=== PATIENT | female | born 1955 | race Caucasian/White ===

== ENCOUNTER 2016-09-03 11:18 | Emergency (ER) | payer BC ==
[2016-09-03 11:58] VITALS: BP 168/96
[2016-09-03] MEDS ORDERED: Lidocaine 1% with EPINEPHrine 1:100,000 20 ML MDV INJECT ONE (12:47)
[2016-09-03] MEDS ORDERED: Diphtheria,Pertussis(Acell),Tetanus Vaccine 0.5 ML SDV inactive IM ONE (12:47)
--- NOTE | 2016-09-03 13:31 | EDM.PDOC ---
ED HPI GENERAL MEDICAL PROBLEM - General Chief Complaint: Head Injury Stated Complaint: FELL, FACIAL INJURIES Time Seen by Provider: 09/03/16 12:39 Source of Information: Reports: Patient History Limitations: Reports: No Limitations - History of Present Illness INITIAL COMMENTS - FREE TEXT/NARRATIVE: Patient is a 61-year-old female who presents to the ED complaining of nasal tenderness/swelling, laceration to the upper lip/gumline, and abrasions to her face and bridge of her nose. Patient states while walking she tripped due to uneven concrete and fell face first hitting the concrete. There was no loss of consciousness. Patient denies any neck/ back/ head pain, numbness/tingling, nausea/vomiting, vision changes, shortness of breath, chest pain, upper extremity/lower extremity pain, or any additional complaints. Patient has no pain to her teeth and denies being loose. No pain with opening closing her jaw. Current medical history includes hypertension and osteoarthritis Current medications losartan and Celebrex Surgical history noncontributory. Denies smoking history, recreational drug use, or alcohol use. Face Pain Score (Numeric/FACES): 3 - Related Data Allergies Allergy/AdvReac Type Severity Reaction Status Date / Time No Known Allergies Allergy Verified 09/03/16 11:52 Home Meds: Home Meds Celecoxib [CeleBREX] 200 mg PO DAILY 09/03/16 [History] Cephalexin [Keflex] 500 mg PO QID #20 capsule 09/03/16 [Rx] Losartan [Cozaar] 25 mg PO DAILY 09/03/16 [History] Past Medical History Cardiovascular History: Reports: Hypertension Musculoskeletal History: Reports: Osteoarthritis Social & Family History - Tobacco Use Smoking Status *Q: Never Smoker - Recreational Drug Use Recreational Drug Use: No ED ROS GENERAL - Review of Systems Review Of Systems: ROS reveals no pertinent complaints other than HPI. ED EXAM, HEAD INJURY - Physical Exam Exam: See Below Exam Limited By: No Limitations General Appearance: Alert, WD/WN, No Apparent Distress Head: Facial Lacerations (Inner aspect of upper lip), Facial Swelling (Nose, upper lip), Facial Tenderness (Mild along the bridge of the nose and along the upper lip). No: Scalp Abrasions, Scalp Ecchymosis, Scalp Hematoma, Scalp Tenderness, Facial Ecchymosis, Sinus Tenderness Nexus Criteria: No: Posterior, Midline Cervical Tenderness, Evidence of Intoxication, Altered Level of Consciousness, Focal Neurological Deficit, Painful Distraction Injuries Ears: Normal External Exam, Hearing Grossly Normal Nose: Nasal Swelling, Nasal Tenderness. No: Nasal Deformity, Nasal Discharge, Nasal Ecchymosis, Septal Deformity, Septal Hematoma, Septal Performation, Active Bleeding Throat/Mouth: Normal Voice, No Airway Compromise, Other (Swelling noted to the upper lip with a deep laceration inner aspect. No pain with palpation of the teeth. No loosening of the teeth noted. Gumline avulsed with lifting the upper lip. No trismus.) Neck: Non-Tender, Full Range of Motion, Normal Alignment, Normal Inspection Respiratory: No Respiratory Distress, Lungs Clear, Normal Breath Sounds, No Accessory Muscle Use, Chest Non-Tender Cardiovascular: Normal Peripheral Pulses, Regular Rate, Rhythm GI/Abdominal Exam (Abbreviated): Normal Bowel Sounds, Soft, Non-Tender, No Organomegaly, No Distention Back Exam: Normal Inspection, Full Range of Motion. No: Paraspinal Tenderness, Vertebral Tenderness Extremities: Normal Range of Motion, Non-Tender, No Pedal Edema, Other ( Superficial abrasions to the knuckles of hands bilaterally.) Neurologic: No Motor/Sensory Deficits, Alert, Normal Mood/Affect, Oriented x 3 Skin: Normal Color, Warm/Dry ED LACERATION/WOUND & BINDU PROC - Laceration/Wound Repair Upper Other Lac/wound length in cm: 1.5 (inner upper lip) Appearance: Subcutaneous, Clean Distal NVT: Neuro & Vascular Intact Anesthetic Type: Local Local Anesthesia - Lidocaine (Xylocaine): 1% Plain, 1% With EPI Local Anesthetic Volume: 3cc Exploration/Debridement/Repair: Wound Explored, in a Bloodless Field, Explored to Base, No Foreign Material Found Suture Size: 4-0 # of Sutures: 1 Suture Type: Prolene, Running, Other (vicryl) Drain Placement: No Sterile Dressing Applied: None Tetanus Status Addressed: Yes Complications: No Upper Jaw Lac/wound length in cm: 3 (upper front gumline) Appearance: Superficial Distal NVT: Neuro & Vascular Intact Anesthetic Type: Local Local Anesthesia - Lidocaine (Xylocaine): 1% With EPI Local Anesthetic Volume: 1cc Exploration/Debridement/Repair: Wound Explored, in a Bloodless Field, Explored to Base, No Foreign Material Found, Multiple Flaps Aligned Closed with: Sutures Suture Size: 4-0 # of Sutures: 1 (vicryl) Suture Type: Interrupted, Simple Drain Placement: No Sterile Dressing Applied: None Tetanus Status Addressed: Yes Complications: No Course - Vital Signs Last Recorded V/S: Last Vital Signs Temp 98.0 F 09/03/16 11:53 Pulse 80 09/03/16 11:53 Resp 17 09/03/16 11:53 BP 168/96 H 09/03/16 11:53 Pulse Ox 100 09/03/16 11:53 - Orders/Labs/Meds Orders: Active Orders 24 hr Category Date Time Status Vaccines to be Administered [RC] PER UNIT ROUTINE Care 09/03/16 12:47 Active Meds: Medications Discontinued Medications Generic Name Dose Route Start Last Admin Trade Name Freq PRN Reason Stop Dose Admin Cephalexin 500 mg 09/03/16 14:10 09/03/16 14:18 Keflex PO 09/03/16 14:11 500 mg ONETIME ONE Administration Diphtheria/Tetanus/Acell Pertussis 0.5 ml 09/03/16 12:47 09/03/16 14:25 Boostrix IM 09/03/16 12:48 0.5 ml .ONCE ONE Administration Lidocaine/Epinephrine 20 ml 09/03/16 12:47 09/03/16 14:27 Xylocaine 1% With Epinephrine 1:100,000 INJECT 09/03/16 12:48 20 ml ONETIME ONE Administration Lidocaine/Epinephrine Confirm 09/03/16 13:47 09/03/16 14:27 Xylocaine 1% With Epinephrine 1:100,000 Administered 09/03/16 13:48 Not Given Dose 20 ml .ROUTE .STK-MED ONE - Re-Assessments/Exams Free Text/Narrative Re-Assessment/Exam: Patient has minimal pain on palpation of the facial structures. Most of the pain is identified to the bridge of the nose with mild swelling and also upper lip where lacerations place. This will require closure with sutures. In addition gum line has avulsed away and may require sutures as well. Ordered lidocaine and tetanus update. 09/03/16 14:13 Laceration to the upper lip and gum line repaired with Vicryl sutures. Ordered Keflex 500 mg by mouth. Will discharge patient home with instructions as document. Departure - Departure Time of Disposition: 14:13 Disposition: Home, Self-Care 01 Condition: Good Clinical Impression: Contusion of face Qualifiers: Encounter type: initial encounter Qualified Code(s): S00.83XA - Contusion of other part of head, initial encounter Laceration of lip without foreign body Qualifiers: Encounter type: initial encounter Qualified Code(s): S01.511A - Laceration without foreign body of lip, initial encounter Laceration of upper gum without complication Qualifiers: Encounter type: initial encounter Qualified Code(s): S01.512A - Laceration without foreign body of oral cavity, initial encounter - Discharge Information Prescriptions: Cephalexin [Keflex] 500 mg PO QID #20 capsule Instructions: Laceration Care, Adult, Contusion, [id number] Referrals: PCP,Not In Area [Primary Care Provider] - Forms: ED Department Discharge Additional Instructions: Suggest sticking with soft foods for next 3 days. After each meal rinse mouth out with warm salt water. Take ibuprofen and Tylenol in alternating fashion for pain. Can apply ice to the affected areas as needed. Take the full dose of Keflex as prescribed. Follow-up with her dentist this coming Monday as scheduled for reevaluation. Sutures will dissolve in the next 5-7 days. Return to ED if you develop any new or worsening symptoms. Refrain from brushing the front upper teeth due to laceration to gum line. - My Orders Last 24 Hours: My Active Orders 09/03/16 12:47 Vaccines to be Administered [RC] PER UNIT ROUTINE - Assessment/Plan Last 24 Hours: My Active Orders 09/03/16 12:47 Vaccines to be Administered [RC] PER UNIT ROUTINE
[2016-09-03] MEDS ORDERED: Lidocaine 1% with EPINEPHrine 1:100,000 20 ML MDV ONE (13:47)
[2016-09-03] MEDS ORDERED: Cephalexin 500 MG Cap PO ONE (14:10)
== END 2016-09-03 14:35 | disposition home or self-care (01) ==
LOC: JD.ED 11:18
DX: S01.511A Laceration without foreign body of lip, initial encounter (principal); S01.512A Laceration without foreign body of oral cavity, initial encounter; S60.512A Abrasion of left hand, initial encounter; S60.511A Abrasion of right hand, initial encounter; I10 Essential (primary) hypertension; M19.90 Unspecified osteoarthritis, unspecified site; Z79.899 Other long term (current) drug therapy; W01.198A Fall on same level from slipping, tripping and stumbling with subsequent striking against other object, initial encounter
CPT/HCPCS: 12013; 90471; 99283; A9270; 90715